=== PATIENT | female | born 1985 | race African-American/Black ===

== ENCOUNTER 2024-01-14 18:32 | Inpatient (IN) | payer OTHER ==
[~2024-01-14] VITALS: Ht 165.1 cm; Wt 62.3 kg
[~2024-01-14 18:32] MED LIST: GLUC3SPR NS; INSU100I13 SQ; INSU100I73 SQ; LANC-335 MC; MIDO2.5T PO; NEED-122 SQ; RISP1 PO; SERT25TA MT; TOBR5DRO47 RIGHTEYE; [UNRECOGNIZED DRUG - CODE] MC
[2024-01-14] MEDS: SODIUM CHLORIDE 0.9% 1,000 ML IV ONE (19:13)
[2024-01-14 19:31] LABS: CHLORIDE 93 mEq/L (98-107); POTASSIUM 5.7 mEq/L (3.5-5.1); SODIUM 122 mEq/L (136-145)
[2024-01-14 19:32] LABS: CALCIUM 7.9 mg/dL (8.7-10.4); CARBON DIOXIDE 18 mEq/L (21-32)
[2024-01-14 19:36] LABS: LACTIC ACID 2.8 mmol/L (0.4-2.0)
[2024-01-14 19:37] LABS: ETHANOL BLOOD < 10 mg/dL (<10); UREA NITROGEN BLOOD 57 mg/dL (9-23)
[2024-01-14 19:38] LABS: BETA HYDROXYBUTYRATE 0.5 mMol/L (0.0-0.3)
[2024-01-14 19:39] LABS: ALANINE AMINOTRANSFERASE 40 IU/L (10-49); ALBUMIN 3.8 g/dL (3.2-4.8); ASPARTATE AMINOTRANSFERASE 19 IU/L (<34); BILIRUBIN TOTAL 0.2 mg/dL (0.1-1.0); PROTEIN TOTAL 6.6 g/dL (6.0-8.3)
[2024-01-14 19:48] LABS: BASOPHILS % 1.1 % (0.0-2.0); EOSINOPHILS % 6.4 % (0.0-5.0); HEMATOCRIT. 38.3 % (36.0-48.0); HEMOGLOBIN. 10.4 g/dL (12.0-16.0); MEAN CORPUSCULAR HEMOGLOBIN 30.1 pg (28.0-32.0); MEAN CORPUSCULAR HGB CONC 27.2 g/dL (31.0-37.0); MEAN CORPUSCULAR VOLUME 110.6 fL (81.0-99.0); MEAN PLATELET VOLUME 9.4 fl (7.4-10.4); MONOCYTES % 5.7 % (2.0-8.0); NEUTROPHILS % 74.8 % (40.0-76.0); PLATELET 164 x1000/uL (130-400); RED BLOOD CELL COUNT 3.47 mill/uL (4.2-5.4); WHITE BLOOD COUNT 5.6 x1000/uL (4.5-11.0)
[2024-01-14 19:49] LABS: ADD RBC MORPHOLOGY YES; DIFFERENTIAL COMMENT 1; GLUCOSE 1176 mg/dL (70-105)
[2024-01-14 19:50] LABS: CREATININE 7.2 mg/dL (0.6-1.0)
[2024-01-14 19:52] LABS: TROPONIN I HIGH SENSITIVITY < 4 ng/L (3.0-34)
[2024-01-14] MEDS ORDERED: INSULIN REGULAR 100U/100ML PMX 100 ML IV SCH (20:15)
[2024-01-14 20:24] LABS: PLATELET ESTIMATE NORMAL
[2024-01-14 20:25] LABS: ANISOCYTOSIS 1+
[2024-01-14] MEDS: INSULIN REGULAR 100U/100ML PMX 100 ML IV SCH (20:29)
[2024-01-14 21:01] LABS: PHOSPHORUS 6.8 mg/dL (2.5-4.9)
[2024-01-14] MEDS ORDERED: ONDANSETRON HCL 4MG/2ML INJ IV PRN (22:45)
[2024-01-14] MEDS ORDERED: SODIUM CHLORIDE 0.9% 1,000 ML IV SCH (22:45)
[2024-01-14] MEDS ORDERED: DEXT 5%/0.9% NACL 1,000 ML IV SCH (22:45)
[2024-01-14] MEDS ORDERED: INSULIN REGULAR (DRIP) 100 UNITS in SODIUM CHLORIDE 0.9% 99 ML IV SCH (22:45)
[2024-01-14] MEDS ORDERED: IPRATROPIUM/ALBUTEROL 0.5-3(2.5)MG/3ML NEB HHN PRN (22:45)
[2024-01-14] MEDS ORDERED: DEXTROSE 50% WATER 50ML SYRINGE IV PRN (22:45)
[2024-01-14] MEDS: SODIUM CHLORIDE 0.9% 1,000 ML IV SCH ×2 (23:00→23:32)
[2024-01-14] MEDS ORDERED: LEVETIRACETAM 500 MG in SODIUM CHLORIDE 0.9% 100 ML IV SCH (23:00)
[2024-01-14] MEDS: LEVETIRACETAM 500MG PREMIX 100 ML IV SCH (23:32)
[2024-01-15 00:29] LABS: PHOSPHORUS 6.5 mg/dL (2.5-4.9)
[2024-01-15] MEDS ORDERED: INSULIN REGULAR (HUMULIN R) 300UNITS/3ML VIAL SUBCUT ONE (03:30)
[2024-01-15] MEDS: BLOOD SUGAR DIAGNOSTIC STRIP TEST SCH ×2 (04:02→09:00)
[2024-01-15 04:54] LABS: CHLORIDE 109 mEq/L (98-107); POTASSIUM 4.3 mEq/L (3.5-5.1); SODIUM 139 mEq/L (136-145)
[2024-01-15 04:55] LABS: CALCIUM 8.1 mg/dL (8.7-10.4); CARBON DIOXIDE 18 mEq/L (21-32)
[2024-01-15 05:00] LABS: GLUCOSE 95 mg/dL (70-105); UREA NITROGEN BLOOD 58 mg/dL (9-23)
[2024-01-15 05:01] LABS: CREATINE KINASE MB FRACTION 2.7 ng/mL (0.5-3.6)
[2024-01-15 05:02] LABS: CREATINE KINASE 196 IU/L (34-145); CREATININE 7.2 mg/dL (0.6-1.0); PHOSPHORUS 6.3 mg/dL (2.5-4.9); TROPONIN I HIGH SENSITIVITY < 4 ng/L (3.0-34)
[2024-01-15 05:07] LABS: HCG SCREEN NEGATIVE
[2024-01-15 05:10] LABS: FOLIC ACID (FOLATE) SERUM > 20.00 ng/mL (>5.38); VITAMIN B12 SERUM 734 pg/mL (211-911)
[2024-01-15] MEDS: DEXTROSE 50% WATER 50ML SYRINGE IV PRN (05:34)
[2024-01-15 07:13] LABS: BASOPHILS % 0.9 % (0.0-2.0); EOSINOPHILS % 11.8 % (0.0-5.0); HEMOGLOBIN. 9.8 g/dL (12.0-16.0); MEAN CORPUSCULAR HGB CONC 31.6 g/dL (31.0-37.0); MEAN CORPUSCULAR VOLUME 95.1 fL (81.0-99.0); MEAN PLATELET VOLUME 9.4 fl (7.4-10.4); MONOCYTES % 11.4 % (2.0-8.0); NEUTROPHILS % 56.9 % (40.0-76.0); PLATELET 171 x1000/uL (130-400); RED BLOOD CELL COUNT 3.26 mill/uL (4.2-5.4); RED CELL DISTRIBUTION WIDTH 16.6 % (11.6-14.6); WHITE BLOOD COUNT 6.5 x1000/uL (4.5-11.0)
[2024-01-15 07:23] LABS: CARBON DIOXIDE 20 mEq/L (21-32); CHLORIDE 107 mEq/L (98-107); POTASSIUM 5.5 mEq/L (3.5-5.1); SODIUM 136 mEq/L (136-145)
[2024-01-15 07:24] LABS: CALCIUM 7.9 mg/dL (8.7-10.4)
[2024-01-15 07:29] LABS: GLUCOSE 254 mg/dL (70-105); TRIGLYCERIDE 73 mg/dL (0-150); UREA NITROGEN BLOOD 59 mg/dL (9-23)
[2024-01-15 07:30] LABS: ALANINE AMINOTRANSFERASE 36 IU/L (10-49); ALBUMIN 3.5 g/dL (3.2-4.8); ASPARTATE AMINOTRANSFERASE 27 IU/L (<34); LDL CHOLESTEROL 36 mg/dL (5-100)
[2024-01-15 07:31] LABS: BILIRUBIN TOTAL 0.2 mg/dL (0.1-1.0); CHOLESTEROL 112 mg/dL (<200); CREATININE 7.2 mg/dL (0.6-1.0); HDL CHOLESTEROL 59 mg/dL (>65); PHOSPHORUS 6.9 mg/dL (2.5-4.9); PROTEIN TOTAL 6.1 g/dL (6.0-8.3)
[2024-01-15 07:32] LABS: T4 FREE 0.59 ng/dL (0.89-1.76); THYROID STIMULATING HORMONE 0.63 uIU/mL (0.55-4.78)
[2024-01-15] MEDS: INSULIN LISPRO 100 UNITS/ML SUBCUT SCH (08:20)
[2024-01-15] MEDS ORDERED: FAMOTIDINE 20MG/2ML VIAL IV SCH (09:00)
[2024-01-15 09:22] LABS: CARBON DIOXIDE 19 mEq/L (21-32); CHLORIDE 108 mEq/L (98-107); POTASSIUM 5.6 mEq/L (3.5-5.1); SODIUM 136 mEq/L (136-145)
[2024-01-15 09:23] LABS: CALCIUM 7.9 mg/dL (8.7-10.4); PROTHROMBIN TIME 11.1 sec (9.6-11.0)
[2024-01-15 09:27] LABS: GLUCOSE 131 mg/dL (70-105); IRON 22 ug/dL (50-170)
[2024-01-15 09:28] LABS: CREATININE 7.4 mg/dL (0.6-1.0); UREA NITROGEN BLOOD 60 mg/dL (9-23)
[2024-01-15 09:30] LABS: PHOSPHORUS 7.1 mg/dL (2.5-4.9); TOTAL IRON BINDING CAPACITY 165 ug/dl (250-425)
[2024-01-15 11:00] VITALS: BP 120/80; PULSE 90; RESP 17; TEMP 98
[2024-01-15 11:38] LABS: GAMMA GLUTAMYL TRANSPEPTIDASE 482 IU/L (<38)
[2024-01-15] MEDS: LEVETIRACETAM 500MG PREMIX 100 ML IV SCH (12:24)
[2024-01-15] MEDS: FAMOTIDINE 20MG/2ML VIAL IV SCH (12:24)
[2024-01-15] MEDS: SODIUM POLYSTYRENE SULFONATE 15 G/60 ML BOT PO NR (12:24)
[2024-01-15 15:30] LABS: HEPATITIS B SURFACE ANTIGEN NEGATIVE (Negative)
[2024-01-15 15:50] LABS: HEPATITIS A AB IGM NEGATIVE (Negative)
[2024-01-15 15:51] LABS: HEPATITIS B CORE AB IGM NEGATIVE (Negative); HEPATITIS C AB NON REACTIVE (Neg) (Negative)
[2024-01-15 17:14] LABS: POTASSIUM 4.7 mEq/L (3.5-5.1)
[2024-01-15 17:15] LABS: CALCIUM 8.2 mg/dL (8.7-10.4)
[2024-01-15 17:21] LABS: CREATININE 7.8 mg/dL (0.6-1.0)
[2024-01-15] MEDS ORDERED: EPOETIN ALFA 4000UNITS/ML VIAL SUBCUT SCH (21:00)
[2024-01-15] MEDS: LEVETIRACETAM 500MG/5ML CUP PO SCH (21:57)
[2024-01-15 22:01] LABS: POTASSIUM 4.7 mEq/L (3.5-5.1)
[2024-01-15 22:02] LABS: CALCIUM 8.2 mg/dL (8.7-10.4)
[2024-01-15 22:19] LABS: CREATININE 7.9 mg/dL (0.6-1.0)
[2024-01-15] MEDS: INSULIN GLARGINE 100 UNITS/ML SUBCUT SCH (22:32)
[2024-01-15 22:35] VITALS: BP 133/76; PULSE 90; RESP 17; TEMP 97.4
[2024-01-15 22:40] VITALS: BP 165/92; PULSE 89; RESP 17; TEMP 97.4
[2024-01-15 23:10] VITALS: BP 179/93; PULSE 92; RESP 16
[2024-01-15 23:40] VITALS: BP 163/92; PULSE 88; RESP 18
[2024-01-16] VITALS (16 sets, daily range): BP systolic 130–220; BP diastolic 75–124; PULSE 78–95; RESP 13–31; TEMP 97–98.7
[2024-01-16] MEDS: DIPHENHYDRAMINE 25MG CAPSULE PO NR (00:08)
[2024-01-16] MEDS: ACETAMINOPHEN 325MG TABLET PO PRN (00:08)
[2024-01-16] MEDS: INSULIN LISPRO 100 UNITS/ML SUBCUT NR (00:11)
[2024-01-16] MEDS: HYDRALAZINE 20MG/ML VIAL IV PRN (01:15)
[2024-01-16 06:56] LABS: EOSINOPHILS % 11.2 % (0.0-5.0); HEMATOCRIT. 30.5 % (36.0-48.0); HEMOGLOBIN. 10.1 g/dL (12.0-16.0); LYMPHOCYTES % 17.9 % (20.0-50.0); MEAN CORPUSCULAR HEMOGLOBIN 30.8 pg (28.0-32.0); MEAN CORPUSCULAR VOLUME 93.5 fL (81.0-99.0); MEAN PLATELET VOLUME 8.8 fl (7.4-10.4); MONOCYTES % 7.1 % (2.0-8.0); NEUTROPHILS % 62.8 % (40.0-76.0); PLATELET 156 x1000/uL (130-400); RED BLOOD CELL COUNT 3.27 mill/uL (4.2-5.4); RED CELL DISTRIBUTION WIDTH 16.3 % (11.6-14.6); WHITE BLOOD COUNT 6.7 x1000/uL (4.5-11.0)
[2024-01-16 07:13] LABS: CHLORIDE 103 mEq/L (98-107); POTASSIUM 3.5 mEq/L (3.5-5.1); SODIUM 137 mEq/L (136-145)
[2024-01-16 07:14] LABS: CALCIUM 8.4 mg/dL (8.7-10.4); CARBON DIOXIDE 24 mEq/L (21-32)
[2024-01-16 07:19] LABS: GLUCOSE 264 mg/dL (70-105); UREA NITROGEN BLOOD 32 mg/dL (9-23)
[2024-01-16 07:20] LABS: ASPARTATE AMINOTRANSFERASE 17 IU/L (<34)
[2024-01-16 07:21] LABS: ALBUMIN 3.4 g/dL (3.2-4.8); BILIRUBIN TOTAL 0.2 mg/dL (0.1-1.0); PHOSPHORUS 4.4 mg/dL (2.5-4.9); PROTEIN TOTAL 5.9 g/dL (6.0-8.3)
[2024-01-16 07:27] LABS: ALANINE AMINOTRANSFERASE 30 IU/L (10-49)
[2024-01-16] MEDS ORDERED: DEXTROSE 50% WATER 50ML SYRINGE IV PRN (07:30)
[2024-01-16 07:48] LABS: CREATININE 5.1 mg/dL (0.6-1.0)
[2024-01-16] MEDS: BLOOD SUGAR DIAGNOSTIC STRIP TEST SCH (07:52)
[2024-01-16] MEDS: INSULIN LISPRO 100 UNITS/ML SUBCUT SCH (08:13)
[2024-01-16] MEDS: AMLODIPINE 5MG TABLET PO SCH (08:14)
[2024-01-16] MEDS: INSULIN GLARGINE 100 UNITS/ML SUBCUT SCH (12:00)
[2024-01-16] MEDS: HYDRALAZINE HCL 25MG TABLET PO SCH (21:16)
[2024-01-17] VITALS (15 sets, daily range): BP systolic 120–162; BP diastolic 80–97; PULSE 82–90; RESP 13–35; TEMP 97.2–98; O2SAT 100
[2024-01-17 09:04] LABS: CARBON DIOXIDE 23 mEq/L (21-32); CHLORIDE 104 mEq/L (98-107); POTASSIUM 3.4 mEq/L (3.5-5.1); SODIUM 139 mEq/L (136-145)
[2024-01-17 09:05] LABS: CALCIUM 7.3 mg/dL (8.7-10.4)
[2024-01-17 09:09] LABS: BASOPHILS % 0.9 % (0.0-2.0); EOSINOPHILS % 11.7 % (0.0-5.0); GLUCOSE 226 mg/dL (70-105); HEMOGLOBIN. 10.2 g/dL (12.0-16.0); LYMPHOCYTES % 20.4 % (20.0-50.0); MEAN CORPUSCULAR HEMOGLOBIN 29.7 pg (28.0-32.0); MEAN CORPUSCULAR HGB CONC 31.9 g/dL (31.0-37.0); MEAN CORPUSCULAR VOLUME 93.2 fL (81.0-99.0); MEAN PLATELET VOLUME 9.1 fl (7.4-10.4); MONOCYTES % 7.7 % (2.0-8.0); NEUTROPHILS % 59.3 % (40.0-76.0); PLATELET 191 x1000/uL (130-400); RED BLOOD CELL COUNT 3.43 mill/uL (4.2-5.4); RED CELL DISTRIBUTION WIDTH 16.1 % (11.6-14.6); WHITE BLOOD COUNT 7.2 x1000/uL (4.5-11.0)
[2024-01-17 09:10] LABS: CREATININE 6.7 mg/dL (0.6-1.0); UREA NITROGEN BLOOD 41 mg/dL (9-23)
[2024-01-17 09:12] LABS: PHOSPHORUS 5.6 mg/dL (2.5-4.9)
== END 2024-01-17 20:10 | disposition home or self-care (01) | DRG 420 ==
LOC: ER 18:32 → EDBEDREQ 20:04 → 5EST 21:30 → EDBEDREQ 21:32 → EDBEDREQTM 21:32 → EDBEDREQSVC 01-15 07:51 → 5EST 01-15 10:28
PROVIDERS: ADMIT Internal Medicine; ATTEND Internal Medicine
PROC: 5A1D70Z Performance of Urinary Filtration, Intermittent, Less than 6 Hours Per Day (ICD-10-PCS; principal; 2024-01-15)
PROC: 5A1D70Z Performance of Urinary Filtration, Intermittent, Less than 6 Hours Per Day (ICD-10-PCS; 2024-01-17)
DX: E10.10 Type 1 diabetes mellitus with ketoacidosis without coma (principal); G92.8 Other toxic encephalopathy; I13.2 Hypertensive heart and chronic kidney disease with heart failure and with stage 5 chronic kidney disease, or end stage renal disease; D72.10 Eosinophilia, unspecified; G91.9 Hydrocephalus, unspecified; N18.6 End stage renal disease; E10.22 Type 1 diabetes mellitus with diabetic chronic kidney disease; G40.909 Epilepsy, unspecified, not intractable, without status epilepticus; E87.1 Hypo-osmolality and hyponatremia; E10.65 Type 1 diabetes mellitus with hyperglycemia; I50.9 Heart failure, unspecified; R16.0 Hepatomegaly, not elsewhere classified; N25.81 Secondary hyperparathyroidism of renal origin; F32.A Depression, unspecified; G93.89 Other specified disorders of brain; F20.9 Schizophrenia, unspecified; Z99.2 Dependence on renal dialysis; D64.9 Anemia, unspecified; E78.5 Hyperlipidemia, unspecified; H54.62 Unqualified visual loss, left eye, normal vision right eye; H54.61 Unqualified visual loss, right eye, normal vision left eye; E87.6 Hypokalemia; E87.5 Hyperkalemia; Z86.73 Personal history of transient ischemic attack (TIA), and cerebral infarction without residual deficits; Z88.0 Allergy status to penicillin; Z90.49 Acquired absence of other specified parts of digestive tract; Z82.49 Family history of ischemic heart disease and other diseases of the circulatory system; Z79.899 Other long term (current) drug therapy; Z79.4 Long term (current) use of insulin; Z88.1 Allergy status to other antibiotic agents
CPT/HCPCS: 36415; 70551; 71045; 76700; 80048; 80053; 80061; 80320; 82010; 82533; 82550; 82553; 82607; 82746; 82962; 82977; 83036; 83540; 83550; 83605; 83735; 83880; 83930; 84100; 84145; 84439; 84443; 84484; 84703; 85025; 86705; 86709; 87340; 90935; 93306; 93970; 99291; J0360; J1815; J1953; J3490; J7030; Q0163; G0480

== ENCOUNTER 2024-03-21 08:30 | Inpatient (IN) | payer OTHER, MEDICAID ==
[~2024-03-21] VITALS: Ht 160 cm; Wt 64.4 kg
[2024-03-21 08:40] VITALS: O2SAT 99
[2024-03-21 09:39] LABS: BASOPHILS % 0.5 % (0.0-2.0); DIFFERENTIAL COMMENT 0; EOSINOPHILS % 5.5 % (0.0-5.0); HEMOGLOBIN. 8.8 g/dL (12.0-16.0); LYMPHOCYTES % 11.4 % (20.0-50.0); MEAN CORPUSCULAR HEMOGLOBIN 29.8 pg (28.0-32.0); MEAN CORPUSCULAR HGB CONC 29.5 g/dL (31.0-37.0); MEAN CORPUSCULAR VOLUME 101.1 fL (81.0-99.0); MEAN PLATELET VOLUME 8.3 fl (7.4-10.4); MONOCYTES % 4.3 % (2.0-8.0); NEUTROPHILS % 78.3 % (40.0-76.0); PLATELET 211 x1000/uL (130-400); RED BLOOD CELL COUNT 2.96 mill/uL (4.2-5.4); RED CELL DISTRIBUTION WIDTH 19.6 % (11.6-14.6); WHITE BLOOD COUNT 10.6 x1000/uL (4.5-11.0)
[2024-03-21 09:49] LABS: CHLORIDE 98 mEq/L (98-107); POTASSIUM 4.5 mEq/L (3.5-5.1); SODIUM 133 mEq/L (136-145)
[2024-03-21 09:50] LABS: CALCIUM 7.9 mg/dL (8.7-10.4); CARBON DIOXIDE 21 mEq/L (21-32); HCG SCREEN NEGATIVE
[2024-03-21 09:55] LABS: UREA NITROGEN BLOOD 72 mg/dL (9-23)
[2024-03-21 09:57] LABS: ALANINE AMINOTRANSFERASE 18 IU/L (10-49); ALBUMIN 3.9 g/dL (3.2-4.8); ASPARTATE AMINOTRANSFERASE 14 IU/L (<34); BETA HYDROXYBUTYRATE 0.8 mMol/L (0.0-0.3); BILIRUBIN TOTAL 0.2 mg/dL (0.1-1.0)
[2024-03-21 11:22] LABS: BILIRUBIN DIRECT < 0.1 mg/dL (<=3.0); CREATININE 8.2 mg/dL (0.6-1.0); GLUCOSE 675 mg/dL (70-105); TROPONIN I HIGH SENSITIVITY < 4 ng/L (3.0-34)
[2024-03-21] MEDS: INSULIN REGULAR (HUMULIN R) 1000UNITS/10ML VIAL IV NR (12:12)
[2024-03-21] MEDS ORDERED: ACETAMINOPHEN 325MG TABLET PO PRN (15:45)
[2024-03-21] MEDS ORDERED: IPRATROPIUM/ALBUTEROL 0.5-3(2.5)MG/3ML NEB NEB PRN (15:45)
[2024-03-21] MEDS ORDERED: GUAIFENESIN 200MG/10ML SUGAR FREE UDC PO PRN (15:45)
[2024-03-21] MEDS ORDERED: DOCUSATE SODIUM 100MG CAPSULE PO PRN (15:45)
[2024-03-21] MEDS ORDERED: NITROGLYCERIN 0.4MG TABLET SL SL PRN (15:45)
[2024-03-21] MEDS ORDERED: MAGNESIUM/ALUMINUM HYDROXIDE/SIMETHICONE 30ML UDC PO PRN (15:45)
[2024-03-21] MEDS: BLOOD SUGAR DIAGNOSTIC STRIP TEST SCH (17:04)
[2024-03-21] MEDS: INSULIN LISPRO 100 UNITS/ML SUBCUT SCH ×2 (17:50→18:54)
[2024-03-21] MEDS: SEVELAMER CARBONATE 800 MG TABLET PO SCH (18:55)
[2024-03-21] MEDS: ENOXAPARIN 30MG/0.3ML SYR SUBCUT SCH (18:56)
[2024-03-21] MEDS: FAMOTIDINE 20MG TABLET PO SCH (21:00)
[2024-03-21] MEDS: CLONIDINE 0.1MG TABLET PO PRN (21:33)
[2024-03-21] MEDS: ACETAMINOPHEN 325MG TABLET PO PRN (21:33)
[2024-03-21] MEDS: INSULIN GLARGINE 100 UNITS/ML SUBCUT SCH (22:00)
[2024-03-22] VITALS (10 sets, daily range): BP systolic 118–166; BP diastolic 70–101; PULSE 74–81; RESP 18–20; TEMP 97.5–98.9
[2024-03-22] MEDS: ONDANSETRON HCL 4MG/2ML INJ IV PRN (03:07)
[2024-03-22] MEDS: ZOLPIDEM TARTRATE 5MG TABLET PO PRN (03:08)
[2024-03-22] MEDS: DIPHENHYDRAMINE 25MG CAPSULE PO PRN (08:32)
[2024-03-22] MEDS: ASPIRIN 81MG EC TABLET PO SCH (08:32)
[2024-03-22] MEDS ORDERED: KEPP500 MT (11:03)
[2024-03-22] MEDS: DIPHENHYDRAMINE 50MG/ML VIAL IV NR (12:21)
[2024-03-22 13:06] LABS: HEPATITIS B SURFACE ANTIGEN NEGATIVE (Negative)
[2024-03-22 13:27] LABS: HEPATITIS A AB IGM NEGATIVE (Negative); HEPATITIS B CORE AB IGM NEGATIVE (Negative)
[2024-03-22 13:28] LABS: HEPATITIS C AB NON REACTIVE (Neg) (Negative)
[2024-03-22] MEDS: LEVETIRACETAM 500MG TABLET PO SCH (14:37)
[2024-03-22] MEDS: EPOETIN ALFA-EPBX 4,000 UNIT/ML VIAL SUBCUT SCH (22:27)
[2024-03-23] VITALS: BP 135/80; PULSE 75; RESP 20; TEMP 97.7
[2024-03-23 04:00] VITALS: BP 121/79; PULSE 91; RESP 21; TEMP 97.9
[2024-03-23 06:34] LABS: BASOPHILS % 0.7 % (0.0-2.0); EOSINOPHILS % 7.5 % (0.0-5.0); HEMATOCRIT. 25.7 % (36.0-48.0); HEMOGLOBIN. 8.1 g/dL (12.0-16.0); LYMPHOCYTES % 21.3 % (20.0-50.0); MEAN CORPUSCULAR HEMOGLOBIN 30.3 pg (28.0-32.0); MEAN CORPUSCULAR HGB CONC 31.8 g/dL (31.0-37.0); MEAN CORPUSCULAR VOLUME 95.4 fL (81.0-99.0); MEAN PLATELET VOLUME 7.8 fl (7.4-10.4); MONOCYTES % 5.7 % (2.0-8.0); NEUTROPHILS % 64.8 % (40.0-76.0); PLATELET 215 x1000/uL (130-400); RED BLOOD CELL COUNT 2.69 mill/uL (4.2-5.4); RED CELL DISTRIBUTION WIDTH 19.1 % (11.6-14.6); WHITE BLOOD COUNT 7.1 x1000/uL (4.5-11.0)
[2024-03-23 06:37] LABS: CARBON DIOXIDE 28 mEq/L (21-32); CHLORIDE 102 mEq/L (98-107); POTASSIUM 4.2 mEq/L (3.5-5.1); SODIUM 140 mEq/L (136-145)
[2024-03-23 06:38] LABS: CALCIUM 8.5 mg/dL (8.7-10.4)
[2024-03-23 06:43] LABS: UREA NITROGEN BLOOD 52 mg/dL (9-23)
[2024-03-23 06:45] LABS: PHOSPHORUS 5.7 mg/dL (2.5-4.9)
[2024-03-23 06:56] LABS: CREATININE 6.6 mg/dL (0.6-1.0)
[2024-03-23 06:58] LABS: GLUCOSE 27 mg/dL (70-105)
[2024-03-23 08:00] VITALS: BP 138/65; PULSE 82; RESP 18; TEMP 98
[2024-03-23] MEDS ORDERED: LANTUSUD SUBCUT (09:31)
[2024-03-23] MEDS ORDERED: INSLIS SUBCUT (09:31)
[2024-03-23 12:00] VITALS: BP 160/84; PULSE 60; RESP 20; TEMP 97.6
[2024-03-23 16:00] VITALS: BP 124/83; PULSE 72; RESP 20; TEMP 97.6
[2024-03-23 20:00] VITALS: BP 195/110; PULSE 88; RESP 20; TEMP 97.5
[2024-03-23] MEDS: INSULIN GLARGINE 100 UNITS/ML SUBCUT SCH (21:28)
[2024-03-24] VITALS (9 sets, daily range): BP systolic 122–197; BP diastolic 70–112; PULSE 71–85; RESP 18–21; TEMP 97.7–98
[2024-03-24 07:21] LABS: BASOPHILS % 0.7 % (0.0-2.0); EOSINOPHILS % 8.5 % (0.0-5.0); HEMATOCRIT. 23.3 % (36.0-48.0); HEMOGLOBIN. 7.8 g/dL (12.0-16.0); LYMPHOCYTES % 23.4 % (20.0-50.0); MEAN CORPUSCULAR HEMOGLOBIN 32.4 pg (28.0-32.0); MEAN CORPUSCULAR HGB CONC 33.5 g/dL (31.0-37.0); MEAN CORPUSCULAR VOLUME 96.5 fL (81.0-99.0); MEAN PLATELET VOLUME 7.9 fl (7.4-10.4); NEUTROPHILS % 60.4 % (40.0-76.0); PLATELET 189 x1000/uL (130-400); RED BLOOD CELL COUNT 2.42 mill/uL (4.2-5.4); RED CELL DISTRIBUTION WIDTH 19.3 % (11.6-14.6); WHITE BLOOD COUNT 5.9 x1000/uL (4.5-11.0)
[2024-03-24 07:26] LABS: CHLORIDE 100 mEq/L (98-107); SODIUM 136 mEq/L (136-145)
[2024-03-24 07:29] LABS: CALCIUM 7.7 mg/dL (8.7-10.4); CARBON DIOXIDE 23 mEq/L (21-32)
[2024-03-24 07:34] LABS: GLUCOSE 191 mg/dL (70-105); UREA NITROGEN BLOOD 67 mg/dL (9-23)
[2024-03-24 07:36] LABS: ALANINE AMINOTRANSFERASE 20 IU/L (10-49); ALBUMIN 3.9 g/dL (3.2-4.8); ASPARTATE AMINOTRANSFERASE 19 IU/L (<34); BILIRUBIN TOTAL < 0.2 mg/dL (0.1-1.0); PHOSPHORUS 6.1 mg/dL (2.5-4.9); PROTEIN TOTAL 6.9 g/dL (6.0-8.3)
[2024-03-24 08:32] LABS: BILIRUBIN DIRECT < 0.1 mg/dL (<=3.0); CREATININE 7.5 mg/dL (0.6-1.0)
[2024-03-24] MEDS: DEXTROSE 50% WATER 50ML SYRINGE IV PRN (11:36)
[2024-03-24] MEDS: DIPHENHYDRAMINE 50MG/ML VIAL IV NR (12:33)
[2024-03-25 06:58] LABS: BASOPHILS % 0.7 % (0.0-2.0); EOSINOPHILS % 6.5 % (0.0-5.0); HEMATOCRIT. 25.7 % (36.0-48.0); HEMOGLOBIN. 8.3 g/dL (12.0-16.0); LYMPHOCYTES % 22.6 % (20.0-50.0); MEAN CORPUSCULAR HGB CONC 32.4 g/dL (31.0-37.0); MEAN CORPUSCULAR VOLUME 95.9 fL (81.0-99.0); MEAN PLATELET VOLUME 8.1 fl (7.4-10.4); MONOCYTES % 6.7 % (2.0-8.0); NEUTROPHILS % 63.5 % (40.0-76.0); PLATELET 204 x1000/uL (130-400); RED BLOOD CELL COUNT 2.68 mill/uL (4.2-5.4); RED CELL DISTRIBUTION WIDTH 19.1 % (11.6-14.6); WHITE BLOOD COUNT 6.9 x1000/uL (4.5-11.0)
[2024-03-25 07:04] LABS: CHLORIDE 98 mEq/L (98-107); POTASSIUM 5.7 mEq/L (3.5-5.1); SODIUM 134 mEq/L (136-145)
[2024-03-25 07:05] LABS: CARBON DIOXIDE 24 mEq/L (21-32)
[2024-03-25 07:06] LABS: CALCIUM 7.6 mg/dL (8.7-10.4)
[2024-03-25 07:10] LABS: GLUCOSE 323 mg/dL (70-105); UREA NITROGEN BLOOD 58 mg/dL (9-23)
[2024-03-25 07:12] LABS: PHOSPHORUS 5.2 mg/dL (2.5-4.9)
[2024-03-25 07:32] LABS: CREATININE 6.4 mg/dL (0.6-1.0)
[2024-03-25 08:00] VITALS: BP 178/104; PULSE 90; RESP 19; TEMP 97.6
[2024-03-25] MEDS ORDERED: SODIUM POLYSTYRENE SULFONATE 15 G/60 ML BOT PO ONE (10:00)
[2024-03-25] MEDS: SODIUM ZIRCONIUM CYCLOSILICATE 10GM/PACKET PO NR ×2 (10:06→17:35)
[2024-03-25 12:00] VITALS: BP 145/94; PULSE 82; RESP 19; TEMP 98.1
[2024-03-25 16:00] VITALS: BP 166/100; PULSE 80; RESP 19; TEMP 97.6
[2024-03-25 20:00] VITALS: BP 170/100; PULSE 83; RESP 18; TEMP 97.6
[2024-03-26] VITALS: BP 180/110; PULSE 80; RESP 18; TEMP 97.8
[2024-03-26 04:00] VITALS: BP 119/77; PULSE 86; RESP 18; TEMP 97.8
[2024-03-26 08:00] VITALS: BP 120/86; PULSE 68; RESP 18; TEMP 98.6
[2024-03-26 09:29] LABS: CHLORIDE 98 mEq/L (98-107); POTASSIUM 4.7 mEq/L (3.5-5.1); SODIUM 136 mEq/L (136-145)
[2024-03-26 09:30] LABS: CALCIUM 7.9 mg/dL (8.7-10.4); CARBON DIOXIDE 22 mEq/L (21-32)
[2024-03-26 09:32] LABS: BASOPHILS % 0.8 % (0.0-2.0); EOSINOPHILS % 6.9 % (0.0-5.0); HEMATOCRIT. 24.9 % (36.0-48.0); HEMOGLOBIN. 7.9 g/dL (12.0-16.0); LYMPHOCYTES % 26.1 % (20.0-50.0); MEAN CORPUSCULAR HEMOGLOBIN 30.2 pg (28.0-32.0); MEAN CORPUSCULAR HGB CONC 31.6 g/dL (31.0-37.0); MEAN CORPUSCULAR VOLUME 95.7 fL (81.0-99.0); MEAN PLATELET VOLUME 8.1 fl (7.4-10.4); MONOCYTES % 8.5 % (2.0-8.0); NEUTROPHILS % 57.7 % (40.0-76.0); PLATELET 194 x1000/uL (130-400); RED CELL DISTRIBUTION WIDTH 18.2 % (11.6-14.6); WHITE BLOOD COUNT 6.5 x1000/uL (4.5-11.0)
[2024-03-26 09:33] LABS: UREA NITROGEN BLOOD 72 mg/dL (9-23)
[2024-03-26 09:35] LABS: GLUCOSE 96 mg/dL (70-105)
[2024-03-26 09:37] LABS: ALANINE AMINOTRANSFERASE 23 IU/L (10-49); ALBUMIN 3.8 g/dL (3.2-4.8); ASPARTATE AMINOTRANSFERASE 31 IU/L (<34); BILIRUBIN TOTAL < 0.2 mg/dL (0.1-1.0); PHOSPHORUS 6.8 mg/dL (2.5-4.9); PROTEIN TOTAL 6.6 g/dL (6.0-8.3)
[2024-03-26 09:45] LABS: BILIRUBIN DIRECT < 0.1 mg/dL (<=3.0)
[2024-03-26 09:46] LABS: CREATININE 7.6 mg/dL (0.6-1.0)
[2024-03-26 12:00] VITALS: BP 153/90; PULSE 77; RESP 18; TEMP 97.8
[2024-03-26 16:00] VITALS: BP 159/78; PULSE 85; RESP 18; TEMP 98.9
[2024-03-26 20:00] VITALS: BP 188/91; PULSE 83; RESP 18; TEMP 97.2
[2024-03-27] VITALS (68 sets, daily range): BP systolic 126–228; BP diastolic 68–142; PULSE 68–93; RESP 5–20; TEMP 96–97.8
[2024-03-27] MEDS ORDERED: LABETALOL 5MG/ML 4ML INJ IV ONE (06:53)
[2024-03-27] MEDS: INSULIN LISPRO 100 UNITS/ML SUBCUT NR (06:56)
[2024-03-27] MEDS ORDERED: DEXTROSE 50% WATER 50ML SYRINGE IV PRN (07:00)
[2024-03-27] MEDS ORDERED: MAGNESIUM 2 G PREMIX 50 ML IV PRN (07:00)
[2024-03-27] MEDS ORDERED: SODIUM CHLORIDE 0.9% 1,000 ML IV SCH ×2 (07:00→13:00)
[2024-03-27] MEDS ORDERED: DEXT 5%/0.9% NACL 1,000 ML IV SCH (07:00)
[2024-03-27] MEDS ORDERED: HYDRALAZINE 20MG/ML VIAL IV NR (07:00)
[2024-03-27] MEDS ORDERED: POTASSIUM CHLORIDE 40 MEQ in SODIUM CHLORIDE 0.9% 230 ML IV PRN (07:00)
[2024-03-27] MEDS ORDERED: SODIUM PHOSPHATE 15 MMOL in SODIUM CHLORIDE 0.9% 245 ML IV PRN (07:00)
[2024-03-27] MEDS ORDERED: KCL 20MEQ/100ML PREMIX 100 ML IV PRN (07:00)
[2024-03-27] MEDS ORDERED: LABETALOL 5MG/ML 4ML INJ IV NR (07:00)
[2024-03-27] MEDS ORDERED: BLOOD SUGAR DIAGNOSTIC STRIP TEST PRN (07:00)
[2024-03-27 07:10] LABS: BG CARBOXYHEMOGLOBIN 1.2 % (0.5-1.5); BG DEOXYHEMOGLOBIN 3.3 % (0.0-5.0); BG FRACTION INSPIRED OXYGEN 28; BG HCO3 ACT 19.5 mmol/L (22.0-26.0); BG METHEMOGLOBIN 0.3 % (0.0-1.5); BG OXYGEN SATURATION 96.6 % (92.0-98.5); BG OXYHEMOGLOBIN 95.2 % (94.0-97.0); BG PCO2 43.1 mmHg (35.0-45.0); BG PH 7.273 (7.350-7.450); BG PO2 106.2 mmHg (75.0-100.0); BG SAMPLE SITE RIGHT RADIAL; BG TOTAL HEMOGLOBIN 9.4 g/dL (12.0-18.0); BG VENT MODE NASAL CANNULA
[2024-03-27] MEDS ORDERED: LIDOCAINE HCL 1% 10 MG/ML 10ML VIAL ONE (08:59)
[2024-03-27] MEDS: BLOOD SUGAR DIAGNOSTIC STRIP TEST SCH (09:00)
[2024-03-27] MEDS: SODIUM CHLORIDE 0.9% 1,000 ML IV ONE (09:34)
[2024-03-27 10:00] LABS: CARBON DIOXIDE 21 mEq/L (21-32); CHLORIDE 96 mEq/L (98-107); POTASSIUM 4.2 mEq/L (3.5-5.1); SODIUM 134 mEq/L (136-145)
[2024-03-27 10:01] LABS: CALCIUM 7.6 mg/dL (8.7-10.4)
[2024-03-27 10:06] LABS: UREA NITROGEN BLOOD 95 mg/dL (9-23)
[2024-03-27 10:11] LABS: LACTIC ACID 2.9 mmol/L (0.4-2.0)
[2024-03-27 10:12] LABS: AMMONIA < 17 uMol/L (<32)
[2024-03-27 10:17] LABS: CREATININE 8.7 mg/dL (0.6-1.0)
[2024-03-27 10:18] LABS: GLUCOSE 423 mg/dL (70-105); PHOSPHORUS 8.1 mg/dL (2.5-4.9)
[2024-03-27] MEDS: INSULIN REGULAR 100U/100ML PMX 100 ML IV SCH (10:51)
[2024-03-27] MEDS: NITROGLYCERIN OINT 1GM/INCH UDPKT TD SCH (13:18)
[2024-03-27] MEDS: SODIUM CHLORIDE 0.9% 1,000 ML IV SCH (14:46)
[2024-03-27] MEDS: AMLODIPINE 2.5MG TABLET PO SCH (14:46)
[2024-03-27] MEDS: DEXT 5%/0.9% NACL 1,000 ML IV SCH (16:10)
[2024-03-27 20:28] LABS: POTASSIUM 4.9 mEq/L (3.5-5.1)
[2024-03-27 20:30] LABS: CALCIUM 8.3 mg/dL (8.7-10.4)
[2024-03-27 20:40] LABS: CREATININE 6.3 mg/dL (0.6-1.0)
[2024-03-27] MEDS: LABETALOL 5MG/ML 4ML INJ IV NR (22:36)
[2024-03-27 23:41] LABS: CHLORIDE 102 mEq/L (98-107); POTASSIUM 4.6 mEq/L (3.5-5.1); SODIUM 139 mEq/L (136-145)
[2024-03-27 23:42] LABS: CALCIUM 8.4 mg/dL (8.7-10.4); CARBON DIOXIDE 22 mEq/L (21-32)
[2024-03-27 23:47] LABS: GLUCOSE 199 mg/dL (70-105); UREA NITROGEN BLOOD 54 mg/dL (9-23)
[2024-03-27 23:51] LABS: CREATININE 6.5 mg/dL (0.6-1.0)
[2024-03-28] VITALS (63 sets, daily range): BP systolic 109–197; BP diastolic 72–118; PULSE 80–108; RESP 0–21; TEMP 97.7–98.2
[2024-03-28] MEDS: HYDRALAZINE 20MG/ML VIAL IV PRN (01:08)
[2024-03-28] MEDS: SODIUM CHLORIDE 0.9% 1,000 ML IV SCH (04:19)
[2024-03-28 05:07] LABS: POTASSIUM 5.1 mEq/L (3.5-5.1)
[2024-03-28 05:23] LABS: CREATININE 6.9 mg/dL (0.6-1.0)
[2024-03-28] MEDS: AMLODIPINE 5MG TABLET PO SCH (08:24)
[2024-03-28 09:15] LABS: POTASSIUM 4.6 mEq/L (3.5-5.1)
[2024-03-28 09:17] LABS: CALCIUM 8.1 mg/dL (8.7-10.4)
[2024-03-28 09:49] LABS: CREATININE 6.9 mg/dL (0.6-1.0)
[2024-03-28] MEDS: HALOPERIDOL LACTATE 5MG/ML VIAL IM PRN (11:39)
[2024-03-28 13:18] LABS: POTASSIUM 4.2 mEq/L (3.5-5.1)
[2024-03-28 13:19] LABS: CALCIUM 8.2 mg/dL (8.7-10.4)
[2024-03-28] MEDS: INSULIN LISPRO 100 UNITS/ML SUBCUT SCH (13:20)
[2024-03-28] MEDS: BLOOD SUGAR DIAGNOSTIC STRIP TEST SCH (13:33)
[2024-03-28] MEDS: CLONIDINE 0.2MG TABLET PO PRN (13:48)
[2024-03-28] MEDS: INSULIN GLARGINE 100 UNITS/ML SUBCUT SCH (21:23)
[2024-03-28 21:34] LABS: POTASSIUM 4.3 mEq/L (3.5-5.1)
[2024-03-28 21:36] LABS: CALCIUM 8.1 mg/dL (8.7-10.4)
[2024-03-28 21:59] LABS: CREATININE 7.6 mg/dL (0.6-1.0)
[2024-03-29] VITALS (28 sets, daily range): BP systolic 111–177; BP diastolic 79–122; PULSE 86–116; RESP 0–18; TEMP 97.1–98.4
[2024-03-29 05:53] LABS: BASOPHILS % 0.8 % (0.0-2.0); EOSINOPHILS % 2.5 % (0.0-5.0); HEMOGLOBIN. 9.3 g/dL (12.0-16.0); MEAN CORPUSCULAR HEMOGLOBIN 30.6 pg (28.0-32.0); MEAN CORPUSCULAR VOLUME 95.4 fL (81.0-99.0); MEAN PLATELET VOLUME 7.5 fl (7.4-10.4); MONOCYTES % 10.6 % (2.0-8.0); NEUTROPHILS % 77.1 % (40.0-76.0); PLATELET 329 x1000/uL (130-400); RED BLOOD CELL COUNT 3.03 mill/uL (4.2-5.4); RED CELL DISTRIBUTION WIDTH 19.5 % (11.6-14.6); WHITE BLOOD COUNT 7.7 x1000/uL (4.5-11.0)
[2024-03-29 06:02] LABS: CARBON DIOXIDE 23 mEq/L (21-32); CHLORIDE 104 mEq/L (98-107); POTASSIUM 4.4 mEq/L (3.5-5.1); SODIUM 141 mEq/L (136-145)
[2024-03-29 06:03] LABS: CALCIUM 7.9 mg/dL (8.7-10.4)
[2024-03-29 06:08] LABS: GLUCOSE 150 mg/dL (70-105); UREA NITROGEN BLOOD 64 mg/dL (9-23)
[2024-03-29 06:10] LABS: PHOSPHORUS 7.2 mg/dL (2.5-4.9)
[2024-03-29 06:18] LABS: CREATININE 7.6 mg/dL (0.6-1.0)
[2024-03-29] MEDS: AMLODIPINE 5MG TABLET PO SCH (12:58)
[2024-03-29] MEDS: OLANZAPINE 10 MG/VIAL IM NR (17:04)
[2024-03-30] VITALS (32 sets, daily range): BP systolic 93–166; BP diastolic 60–117; PULSE 89–124; RESP 8–22; TEMP 97.6–98.6
[2024-03-30] MEDS: INSULIN LISPRO 100 UNITS/ML SUBCUT SCH (06:00)
[2024-03-30] MEDS: BLOOD SUGAR DIAGNOSTIC STRIP TEST SCH (06:00)
[2024-03-30] MEDS: DEXTROSE 50% WATER 50ML SYRINGE IV PRN (06:25)
[2024-03-30 06:40] LABS: CHLORIDE 101 mEq/L (98-107); SODIUM 136 mEq/L (136-145)
[2024-03-30 06:42] LABS: BASOPHILS % 0.5 % (0.0-2.0); CARBON DIOXIDE 24 mEq/L (21-32); EOSINOPHILS % 1.9 % (0.0-5.0); HEMOGLOBIN. 9.5 g/dL (12.0-16.0); LYMPHOCYTES % 12.5 % (20.0-50.0); MEAN CORPUSCULAR HEMOGLOBIN 30.1 pg (28.0-32.0); MEAN CORPUSCULAR HGB CONC 31.7 g/dL (31.0-37.0); MEAN CORPUSCULAR VOLUME 95.1 fL (81.0-99.0); MEAN PLATELET VOLUME 7.3 fl (7.4-10.4); MONOCYTES % 14.6 % (2.0-8.0); NEUTROPHILS % 70.5 % (40.0-76.0); PLATELET 320 x1000/uL (130-400); RED BLOOD CELL COUNT 3.16 mill/uL (4.2-5.4); RED CELL DISTRIBUTION WIDTH 18.8 % (11.6-14.6)
[2024-03-30 06:43] LABS: CALCIUM 8.5 mg/dL (8.7-10.4)
[2024-03-30 06:48] LABS: UREA NITROGEN BLOOD 45 mg/dL (9-23)
[2024-03-30 06:49] LABS: ALANINE AMINOTRANSFERASE 14 IU/L (10-49); ALBUMIN 3.9 g/dL (3.2-4.8)
[2024-03-30 06:50] LABS: ASPARTATE AMINOTRANSFERASE 11 IU/L (<34); BILIRUBIN TOTAL 0.2 mg/dL (0.1-1.0); PHOSPHORUS 4.6 mg/dL (2.5-4.9)
[2024-03-30 07:16] LABS: BILIRUBIN DIRECT < 0.1 mg/dL (<=3.0)
[2024-03-30 07:18] LABS: GLUCOSE 41 mg/dL (70-105)
[2024-03-30] MEDS: INSULIN GLARGINE 100 UNITS/ML SUBCUT SCH (20:55)
[2024-03-31] VITALS (13 sets, daily range): BP systolic 111–191; BP diastolic 76–98; PULSE 90–108; RESP 10–20; TEMP 97.5–98.6
[2024-03-31 06:37] LABS: BASOPHILS % 0.5 % (0.0-2.0); EOSINOPHILS % 5.6 % (0.0-5.0); HEMATOCRIT. 27.6 % (36.0-48.0); HEMOGLOBIN. 8.8 g/dL (12.0-16.0); LYMPHOCYTES % 20.9 % (20.0-50.0); MEAN CORPUSCULAR HEMOGLOBIN 30.1 pg (28.0-32.0); MEAN CORPUSCULAR VOLUME 94.2 fL (81.0-99.0); MEAN PLATELET VOLUME 7.4 fl (7.4-10.4); MONOCYTES % 9.9 % (2.0-8.0); NEUTROPHILS % 63.1 % (40.0-76.0); PLATELET 312 x1000/uL (130-400); RED BLOOD CELL COUNT 2.93 mill/uL (4.2-5.4); RED CELL DISTRIBUTION WIDTH 18.6 % (11.6-14.6); WHITE BLOOD COUNT 6.4 x1000/uL (4.5-11.0)
[2024-03-31 06:58] LABS: CHLORIDE 99 mEq/L (98-107); SODIUM 133 mEq/L (136-145)
[2024-03-31 06:59] LABS: CALCIUM 8.5 mg/dL (8.7-10.4); CARBON DIOXIDE 22 mEq/L (21-32)
[2024-03-31 07:03] LABS: UREA NITROGEN BLOOD 60 mg/dL (9-23)
[2024-03-31 07:04] LABS: GLUCOSE 141 mg/dL (70-105)
[2024-03-31 07:06] LABS: ALANINE AMINOTRANSFERASE 10 IU/L (10-49); ALBUMIN 3.6 g/dL (3.2-4.8); ASPARTATE AMINOTRANSFERASE 10 IU/L (<34); BILIRUBIN TOTAL < 0.2 mg/dL (0.1-1.0); PHOSPHORUS 6.3 mg/dL (2.5-4.9); PROTEIN TOTAL 6.3 g/dL (6.0-8.3)
[2024-03-31 07:11] LABS: BILIRUBIN DIRECT < 0.1 mg/dL (<=3.0); CREATININE 7.2 mg/dL (0.6-1.0)
[2024-04-01] VITALS: BP 137/92; PULSE 103; TEMP 98.4
[2024-04-01 02:00] VITALS: BP 138/92; PULSE 104; RESP 14
[2024-04-01 04:00] VITALS: BP 135/93; PULSE 100; RESP 12; TEMP 98.2
[2024-04-01 06:58] LABS: CHLORIDE 100 mEq/L (98-107); POTASSIUM 4.2 mEq/L (3.5-5.1); SODIUM 136 mEq/L (136-145)
[2024-04-01 07:00] LABS: CALCIUM 8.6 mg/dL (8.7-10.4); CARBON DIOXIDE 25 mEq/L (21-32)
[2024-04-01 07:03] LABS: UREA NITROGEN BLOOD 57 mg/dL (9-23)
[2024-04-01 07:05] LABS: GLUCOSE 107 mg/dL (70-105)
[2024-04-01 07:06] LABS: ALANINE AMINOTRANSFERASE 11 IU/L (10-49)
[2024-04-01 07:07] LABS: ALBUMIN 3.8 g/dL (3.2-4.8); ASPARTATE AMINOTRANSFERASE 11 IU/L (<34)
[2024-04-01 07:08] LABS: BILIRUBIN TOTAL 0.2 mg/dL (0.1-1.0); PHOSPHORUS 5.2 mg/dL (2.5-4.9); PROTEIN TOTAL 6.7 g/dL (6.0-8.3)
[2024-04-01 07:21] LABS: BILIRUBIN DIRECT < 0.1 mg/dL (<=3.0)
[2024-04-01 07:58] LABS: BASOPHILS % 0.6 % (0.0-2.0); EOSINOPHILS % 5.5 % (0.0-5.0); HEMATOCRIT. 26.9 % (36.0-48.0); HEMOGLOBIN. 8.5 g/dL (12.0-16.0); LYMPHOCYTES % 24.9 % (20.0-50.0); MEAN CORPUSCULAR HEMOGLOBIN 29.8 pg (28.0-32.0); MEAN CORPUSCULAR HGB CONC 31.6 g/dL (31.0-37.0); MEAN CORPUSCULAR VOLUME 94.4 fL (81.0-99.0); MEAN PLATELET VOLUME 7.1 fl (7.4-10.4); MONOCYTES % 10.8 % (2.0-8.0); NEUTROPHILS % 58.2 % (40.0-76.0); PLATELET 289 x1000/uL (130-400); RED BLOOD CELL COUNT 2.85 mill/uL (4.2-5.4); RED CELL DISTRIBUTION WIDTH 18.7 % (11.6-14.6); WHITE BLOOD COUNT 6.6 x1000/uL (4.5-11.0)
[2024-04-01 08:00] VITALS: BP 123/80; PULSE 102; RESP 14; TEMP 97.4
[2024-04-01 10:00] VITALS: BP 149/89; PULSE 109; RESP 19
[2024-04-01 12:00] VITALS: BP 149/89; PULSE 109; RESP 15; TEMP 97.5
== END 2024-04-01 11:45 | disposition left against medical advice (07) | DRG 52 ==
LOC: ER 08:39 → 7WST 14:53 → EDBEDREQTM 14:56 → EDBEDREQ 14:56 → ER 03-22 01:35 → 7WST 03-22 06:21 → CVICU 03-27 07:47 → 5EST 03-30 17:10
PROVIDERS: ADMIT Internal Medicine; ATTEND Internal Medicine
PROC: 5A1D70Z Performance of Urinary Filtration, Intermittent, Less than 6 Hours Per Day (ICD-10-PCS; 2024-03-22)
PROC: 5A1D70Z Performance of Urinary Filtration, Intermittent, Less than 6 Hours Per Day (ICD-10-PCS; 2024-03-24)
PROC: 02HV33Z Insertion of Infusion Device into Superior Vena Cava, Percutaneous Approach (ICD-10-PCS; principal; 2024-03-27)
PROC: B548ZZA Ultrasonography of Superior Vena Cava, Guidance (ICD-10-PCS; 2024-03-27)
PROC: 5A1D70Z Performance of Urinary Filtration, Intermittent, Less than 6 Hours Per Day (ICD-10-PCS; 2024-03-27)
PROC: 5A1D70Z Performance of Urinary Filtration, Intermittent, Less than 6 Hours Per Day (ICD-10-PCS; 2024-03-29)
PROC: 5A1D70Z Performance of Urinary Filtration, Intermittent, Less than 6 Hours Per Day (ICD-10-PCS; 2024-03-31)
DX: G93.41 Metabolic encephalopathy (principal); I13.2 Hypertensive heart and chronic kidney disease with heart failure and with stage 5 chronic kidney disease, or end stage renal disease; E10.649 Type 1 diabetes mellitus with hypoglycemia without coma; N18.6 End stage renal disease; R65.10 Systemic inflammatory response syndrome (SIRS) of non-infectious origin without acute organ dysfunction; E83.51 Hypocalcemia; E10.22 Type 1 diabetes mellitus with diabetic chronic kidney disease; D63.8 Anemia in other chronic diseases classified elsewhere; R56.9 Unspecified convulsions; J98.4 Other disorders of lung; Z53.29 Procedure and treatment not carried out because of patient's decision for other reasons; N25.81 Secondary hyperparathyroidism of renal origin; F32.A Depression, unspecified; E78.5 Hyperlipidemia, unspecified; F17.200 Nicotine dependence, unspecified, uncomplicated; Z99.2 Dependence on renal dialysis; Z79.4 Long term (current) use of insulin; Z88.0 Allergy status to penicillin; Z88.8 Allergy status to other drugs, medicaments and biological substances; Z79.899 Other long term (current) drug therapy; Z82.49 Family history of ischemic heart disease and other diseases of the circulatory system
CPT/HCPCS: 36415; 36573; 36600; 70551; 71045; 73562; 80048; 80076; 82010; 82140; 82375; 82805; 82962; 83036; 83605; 83735; 83930; 84100; 84145; 84484; 84703; 85025; 86705; 86709; 87340; 90935; 93005; 93970; 99291; C1725; J0360; J0885; J1200; J1630; J1650; J1815; J2405; J3490; J7030; J7042; Q0163

== ENCOUNTER 2024-05-01 16:56 | Emergency (ER) | payer MEDICAID, OTHER ==
[~2024-05-01] VITALS: Ht 165.1 cm; Wt 70.0 kg
[~2024-05-01 16:56] MED LIST changes: -GLUC3SPR NS; +INSLIS SUBCUT; -INSU100I13 SQ; -INSU100I73 SQ; +KEPP500 MT; +LANTUSUD SUBCUT; -RISP1 PO; -SERT25TA MT; -TOBR5DRO47 RIGHTEYE
[2024-05-01 16:58] VITALS: O2SAT 99
[2024-05-01 17:47] LABS: BASOPHILS % 1.3 % (0.0-2.0); EOSINOPHILS % 4.7 % (0.0-5.0); HEMATOCRIT. 40.3 % (36.0-48.0); HEMOGLOBIN. 12.6 g/dL (12.0-16.0); LYMPHOCYTES % 16.5 % (20.0-50.0); MEAN CORPUSCULAR HEMOGLOBIN 29.7 pg (28.0-32.0); MEAN CORPUSCULAR HGB CONC 31.3 g/dL (31.0-37.0); MEAN CORPUSCULAR VOLUME 94.9 fL (81.0-99.0); MEAN PLATELET VOLUME 8.2 fl (7.4-10.4); MONOCYTES % 6.2 % (2.0-8.0); NEUTROPHILS % 71.3 % (40.0-76.0); PLATELET 216 x1000/uL (130-400); RED BLOOD CELL COUNT 4.25 mill/uL (4.2-5.4); RED CELL DISTRIBUTION WIDTH 17.7 % (11.6-14.6)
[2024-05-01] MEDS: LEVETIRACETAM 500MG PREMIX 100 ML IV ONE (17:47)
[2024-05-01] MEDS: SODIUM CHLORIDE 0.9% 1,000 ML IV ONE ×2 (17:47→18:39)
[2024-05-01 17:52] LABS: CARBON DIOXIDE 25 mEq/L (21-32); CHLORIDE 100 mEq/L (98-107); POTASSIUM 3.8 mEq/L (3.5-5.1); SODIUM 135 mEq/L (136-145)
[2024-05-01 17:53] LABS: CALCIUM 8.9 mg/dL (8.7-10.4)
[2024-05-01 17:58] LABS: UREA NITROGEN BLOOD 37 mg/dL (9-23)
[2024-05-01 18:00] LABS: PHOSPHORUS 4.4 mg/dL (2.5-4.9)
[2024-05-01 18:03] LABS: CREATININE 6.5 mg/dL (0.6-1.0); GLUCOSE 444 mg/dL (70-105)
[2024-05-01 18:04] LABS: ETHANOL BLOOD < 10 mg/dL (<10)
[2024-05-01 19:00] VITALS: TEMP 36.66960
[2024-05-01] MEDS: INSULIN REGULAR (HUMULIN R) 1000UNITS/10ML VIAL IV ONE (19:40)
[2024-05-01] MEDS: HYDRALAZINE 20MG/ML VIAL IV ONE (19:41)
[2024-05-01 19:56] VITALS: TEMP 98
[2024-05-01] MEDS: ACETAMINOPHEN 325MG TABLET PO ONE (19:56)
[2024-05-01 20:01] VITALS: BP 128/82; PULSE 110; RESP 19; O2SAT 100
== END 2024-05-01 19:59 | disposition home or self-care (01) ==
LOC: ER 16:56
DX: R56.9 Unspecified convulsions (principal); E11.65 Type 2 diabetes mellitus with hyperglycemia; I10 Essential (primary) hypertension; I12.0 Hypertensive chronic kidney disease with stage 5 chronic kidney disease or end stage renal disease; E11.22 Type 2 diabetes mellitus with diabetic chronic kidney disease; F20.9 Schizophrenia, unspecified; N18.6 End stage renal disease; Z99.2 Dependence on renal dialysis; Z86.73 Personal history of transient ischemic attack (TIA), and cerebral infarction without residual deficits; Z79.899 Other long term (current) drug therapy; Z88.0 Allergy status to penicillin
CPT/HCPCS: 80051; 80048; 80320; 82962; 83690; 83735; 84100; 84443; 85025; 36415; 71045; 93005; 96365; 96375; 99285; J1953; J0360; J1815; J7030; Z7610; G0480

== ENCOUNTER 2024-05-12 08:47 | Inpatient (IN) | payer OTHER ==
[~2024-05-12] VITALS: Ht 170.2 cm; Wt 56.7 kg
[2024-05-12] MEDS ORDERED: LORAZEPAM 2MG/ML INJ IV ONE (09:00)
[2024-05-12] MEDS: LEVETIRACETAM 1000MG PREMIX 100 ML IV NR (09:24)
[2024-05-12 09:25] LABS: HEMATOCRIT. 44.5 % (36.0-48.0); HEMOGLOBIN. 13.7 g/dL (12.0-16.0); MEAN CORPUSCULAR HEMOGLOBIN 29.8 pg (28.0-32.0); MEAN CORPUSCULAR HGB CONC 30.8 g/dL (31.0-37.0); MEAN CORPUSCULAR VOLUME 96.5 fL (81.0-99.0); MEAN PLATELET VOLUME 8.4 fl (7.4-10.4); PLATELET 178 x1000/uL (130-400); RED BLOOD CELL COUNT 4.61 mill/uL (4.2-5.4); RED CELL DISTRIBUTION WIDTH 18.6 % (11.6-14.6)
[2024-05-12 09:31] LABS: DIFFERENTIAL COMMENT 1
[2024-05-12 09:33] LABS: CHLORIDE 99 mEq/L (98-107); POTASSIUM 3.7 mEq/L (3.5-5.1); SODIUM 137 mEq/L (136-145)
[2024-05-12 09:34] LABS: CALCIUM 8.3 mg/dL (8.7-10.4); CARBON DIOXIDE 18 mEq/L (21-32)
[2024-05-12 09:44] LABS: GLUCOSE 253 mg/dL (70-105); UREA NITROGEN BLOOD 45 mg/dL (9-23)
[2024-05-12 09:49] LABS: CREATININE 9.4 mg/dL (0.6-1.0); ETHANOL BLOOD < 10 mg/dL (<10)
[2024-05-12 10:50] LABS: ANISOCYTOSIS 2+; NUCLEATED RED BLOOD CELLS 1 /100 WBC; PLATELET ESTIMATE NORMAL
[2024-05-12 12:24] LABS: CREATINE KINASE 221 IU/L (34-145); LACTIC ACID 2.6 mmol/L (0.4-2.0)
[2024-05-12] MEDS ORDERED: LORAZEPAM 2MG/ML INJ IV PRN (14:45)
[2024-05-12] MEDS ORDERED: IPRATROPIUM/ALBUTEROL 0.5-3(2.5)MG/3ML NEB HHN PRN (14:45)
[2024-05-12] MEDS: ONDANSETRON HCL 4MG/2ML INJ IV PRN (17:07)
[2024-05-12] MEDS: LEVETIRACETAM 500MG PREMIX 100 ML IV SCH (17:07)
[2024-05-12] MEDS: ACETAMINOPHEN 325MG TABLET PO PRN (17:24)
[2024-05-12] MEDS: DIPHENHYDRAMINE 50MG/ML VIAL IV PRN (17:24)
[2024-05-12] MEDS: HYDRALAZINE 20MG/ML VIAL IV NR (17:51)
[2024-05-12 18:09] LABS: HEPATITIS B SURFACE ANTIGEN NEGATIVE (Negative)
[2024-05-12] MEDS ORDERED: LEVETIRACETAM 500MG PREMIX 100 ML IV SCH (18:23)
[2024-05-12 18:29] VITALS: BP 139/84; PULSE 94; RESP 18; TEMP 36.78072; O2SAT 97
[2024-05-12 18:30] LABS: HEPATITIS A AB IGM NEGATIVE (Negative); HEPATITIS B CORE AB IGM NEGATIVE (Negative)
[2024-05-12 18:31] LABS: HEPATITIS C AB NON REACTIVE (Neg) (Negative)
[2024-05-12 20:00] VITALS: BP_SYST 135; BP_SYST 139; BP_DIAS 82; BP_DIAS 84; PULSE 89; PULSE 94; RESP 18; TEMP 36.3918; TEMP 36.8072; O2SAT 95
[2024-05-12] MEDS ORDERED: DEXTROSE 50% WATER 50ML SYRINGE IV PRN (23:30)
[2024-05-13] VITALS (13 sets, daily range): BP systolic 97–192; BP diastolic 48–103; PULSE 67–98; RESP 16–20; TEMP 36.3918–37.72524; O2SAT 92–100
[2024-05-13] MEDS: INSULIN LISPRO 100 UNITS/ML SUBCUT SCH (00:17)
[2024-05-13] MEDS: BLOOD SUGAR DIAGNOSTIC STRIP TEST SCH (05:17)
[2024-05-13] MEDS ORDERED: INSULIN LISPRO 100 UNITS/ML SUBCUT SCH (07:40)
[2024-05-13 09:14] LABS: BASOPHILS % 1.4 % (0.0-2.0); EOSINOPHILS % 4.5 % (0.0-5.0); HEMATOCRIT. 39.3 % (36.0-48.0); HEMOGLOBIN. 12.3 g/dL (12.0-16.0); LYMPHOCYTES % 23.8 % (20.0-50.0); MEAN CORPUSCULAR HEMOGLOBIN 29.7 pg (28.0-32.0); MEAN CORPUSCULAR HGB CONC 31.4 g/dL (31.0-37.0); MEAN CORPUSCULAR VOLUME 94.4 fL (81.0-99.0); MEAN PLATELET VOLUME 8.5 fl (7.4-10.4); MONOCYTES % 4.5 % (2.0-8.0); NEUTROPHILS % 65.8 % (40.0-76.0); PLATELET 154 x1000/uL (130-400); RED BLOOD CELL COUNT 4.16 mill/uL (4.2-5.4); RED CELL DISTRIBUTION WIDTH 18.6 % (11.6-14.6); WHITE BLOOD COUNT 3.8 x1000/uL (4.5-11.0)
[2024-05-13 09:26] LABS: CARBON DIOXIDE 24 mEq/L (21-32); CHLORIDE 101 mEq/L (98-107); POTASSIUM 3.6 mEq/L (3.5-5.1); SODIUM 137 mEq/L (136-145)
[2024-05-13 09:27] LABS: CALCIUM 8.3 mg/dL (8.7-10.4)
[2024-05-13 09:31] LABS: GLUCOSE 239 mg/dL (70-105)
[2024-05-13 09:32] LABS: UREA NITROGEN BLOOD 46 mg/dL (9-23)
[2024-05-13 09:34] LABS: PHOSPHORUS 5.1 mg/dL (2.5-4.9)
[2024-05-13 09:49] LABS: CREATININE 7.8 mg/dL (0.6-1.0)
[2024-05-13] MEDS: LEVETIRACETAM 500MG PREMIX 100 ML IV SCH (11:01)
[2024-05-13] MEDS: CLONIDINE 0.1MG TABLET PO PRN (23:54)
[2024-05-14] VITALS (15 sets, daily range): BP systolic 116–181; BP diastolic 67–110; PULSE 69–89; RESP 16–18; TEMP 36.3918–37.16964; O2SAT 96–100
[2024-05-14] MEDS: LEVETIRACETAM 500MG TABLET PO SCH (08:42)
[2024-05-14] MEDS: INSULIN LISPRO 100 UNITS/ML SUBCUT NR (09:41)
[2024-05-14] MEDS: INSULIN GLARGINE 100 UNITS/ML SUBCUT SCH (09:42)
[2024-05-14 10:49] LABS: CHLORIDE 98 mEq/L (98-107); POTASSIUM 3.5 mEq/L (3.5-5.1); SODIUM 133 mEq/L (136-145)
[2024-05-14 10:50] LABS: CARBON DIOXIDE 24 mEq/L (21-32)
[2024-05-14 10:51] LABS: CALCIUM 7.9 mg/dL (8.7-10.4)
[2024-05-14 10:55] LABS: BASOPHILS % 0.7 % (0.0-2.0); EOSINOPHILS % 9.8 % (0.0-5.0); HEMATOCRIT. 39.4 % (36.0-48.0); HEMOGLOBIN. 12.6 g/dL (12.0-16.0); LYMPHOCYTES % 32.6 % (20.0-50.0); MEAN CORPUSCULAR HEMOGLOBIN 30.1 pg (28.0-32.0); MEAN CORPUSCULAR VOLUME 94.1 fL (81.0-99.0); MEAN PLATELET VOLUME 8.5 fl (7.4-10.4); MONOCYTES % 9.2 % (2.0-8.0); NEUTROPHILS % 47.7 % (40.0-76.0); PLATELET 165 x1000/uL (130-400); RED BLOOD CELL COUNT 4.19 mill/uL (4.2-5.4); RED CELL DISTRIBUTION WIDTH 18.5 % (11.6-14.6); WHITE BLOOD COUNT 4.7 x1000/uL (4.5-11.0)
[2024-05-14 10:56] LABS: GLUCOSE 312 mg/dL (70-105); UREA NITROGEN BLOOD 48 mg/dL (9-23)
[2024-05-14 10:58] LABS: PHOSPHORUS 4.8 mg/dL (2.5-4.9)
[2024-05-14] MEDS ORDERED: KEPP500 PO (14:37)
[2024-05-20] MEDS ORDERED: PHEN100C4 PO (11:39)
== END 2024-05-14 17:02 | disposition home health service (06) | DRG 53 ==
LOC: ER 08:47 → 5WST 10:37 → EDBEDREQTM 10:41 → EDBEDREQ 10:41 → 8WST 18:20
PROVIDERS: ADMIT Internal Medicine; ATTEND Internal Medicine
PROC: 5A1D70Z Performance of Urinary Filtration, Intermittent, Less than 6 Hours Per Day (ICD-10-PCS; principal; 2024-05-13)
PROC: 5A1D70Z Performance of Urinary Filtration, Intermittent, Less than 6 Hours Per Day (ICD-10-PCS; 2024-05-14)
DX: G40.909 Epilepsy, unspecified, not intractable, without status epilepticus (principal); I13.2 Hypertensive heart and chronic kidney disease with heart failure and with stage 5 chronic kidney disease, or end stage renal disease; N18.6 End stage renal disease; E10.22 Type 1 diabetes mellitus with diabetic chronic kidney disease; N25.81 Secondary hyperparathyroidism of renal origin; D64.9 Anemia, unspecified; E78.5 Hyperlipidemia, unspecified; I16.0 Hypertensive urgency; I50.9 Heart failure, unspecified; Z86.73 Personal history of transient ischemic attack (TIA), and cerebral infarction without residual deficits; Z99.2 Dependence on renal dialysis; Z88.0 Allergy status to penicillin; Z79.4 Long term (current) use of insulin; Z82.49 Family history of ischemic heart disease and other diseases of the circulatory system; I95.1 Orthostatic hypotension
CPT/HCPCS: 36415; 71045; 80048; 80320; 82010; 82542; 82550; 82962; 83036; 83605; 83735; 83930; 84100; 85025; 86705; 86709; 87340; 90935; 93970; 99285; J0360; J1200; J1815; J1953; J2405; G0480